=== PATIENT | female | born 1995 | race Caucasian/White ===

== ENCOUNTER 2023-02-23 15:42 | Observation (INO) | payer SELFPAY ==
[2023-02-23 16:09] VITALS: BP 105/61; PULSE 87; TEMP 36.8
[2023-02-23 16:15] VITALS: BP 101/58; PULSE 81; BMI 29.0
[2023-02-23 16:58] VITALS: BP 102/62; PULSE 87
[2023-02-23 17:00] VITALS: BP 102/58; PULSE 87
[2023-02-23 17:35] LABS: Appearance Urine Cloudy (Clear); Bacteria Urine 2+ /hpf; Bilirubin Urine Negative (Negative); Blood Urine Negative (Negative); Color Urine Dark Yellow (Yellow); Glucose Urine UA Negative (Negative); Ketones Urine 2+ mg/dL (Negative); Leukocyte Esterase Ur 1+ LEU/UL (Negative); Need Manual Microscopic Reviewed; Nitrate Urine Negative (Negative); Protein Urine Trace mg/dL (Negative); RBC Urine 0-2 /hpf (0-2); Squamous Epithelial Cell Urine Many /hpf (Few); WBC Urine 51-100 /hpf
[2023-02-23 17:40] LABS: Add Urine Microscopic? YES
--- NOTE | 2023-02-24 08:29 | PM.OBTRLD ---
OB - Triage/Final Diagnosis Visit Information Date of evaluation: 02/24/23 Reason for evaluation: threatened labor Comments/Additional reasons for admission: I have assessed the risk for this patient, Arcelia Nielsen, and determined that she would benefit from observation care. Evaluation Laboratory results: Laboratory Tests 02/23/23 16:54 Urine Color Dark yellow Urine Appearance Cloudy H Urine pH 6.0 Ur Specific [place] 1.030 Urine Protein Trace Urine Glucose (UA) Negative Urine Ketones 2+ H Ur Blood (Man) Negative Urine Nitrate Negative Urine Bilirubin Negative Urine Urobilinogen 1.0 Add Ur Microanalysis Reviewed Leukocyte Esterase Rfl 1+ H Urine RBC 0-2 Urine WBC 51-100 H Ur Squamous Epith Cells Many H Urine Bacteria 2+ H Urine Casts 3-5 Vital signs: Vital Signs - 24 hr 02/23/23 16:09 02/23/23 16:15 02/23/23 16:58 Temperature 98.2 F Pulse Rate 87 81 87 Blood Pressure 105/61 101/58 L 102/62 Oxygen Delivery 02/23/23 17:00 02/23/23 16:15 Temperature Pulse Rate 87 Blood Pressure 102/58 L Oxygen Delivery Room Air
== END 2023-02-23 19:20 | disposition home or self-care (01) ==
PROVIDERS: Admitting Provider Student in an Organized Health Care Education/Training Program; Visit Provider Student in an Organized Health Care Education/Training Program
DX: O47.03 False labor before 37 completed weeks of gestation, third trimester (principal); O26.893 Other specified pregnancy related conditions, third trimester; R10.9 Unspecified abdominal pain; Z3A.31 31 weeks gestation of pregnancy
CPT/HCPCS: 81001; 87086; G0378; G0379